=== PATIENT | female | born 1955 | race Caucasian/White ===

== ENCOUNTER 2020-04-25 13:00 | Outpatient (CLI) | payer OTHER, SELFPAY ==
[2020-04-26 02:52] LABS: SARS-CoV-2 RNA PCR Negative
== END 2020-04-25 13:01 | disposition home or self-care (01) ==
LOC: CHSLAB 13:02
PROVIDERS: PCP Internal Medicine; Visit Provider Internal Medicine
DX: Z20.828 Contact with and (suspected) exposure to other viral communicable diseases (principal)
CPT/HCPCS: 87635; C9803; U0003

== ENCOUNTER 2020-04-29 15:42 | Emergency (ER) | payer OTHER, SELFPAY ==
--- NOTE | ~2020-04-29 | XR_ITS ---
EXAMINATION: XR chest 2V 04/29/2020 16:38 INDICATION: Cough and congestion. PROCEDURE: PA and lateral views of chest COMPARISON: Comparison to multiple prior studies sequentially, with oldest reviewed study dated 08/07. FINDINGS: The lungs are clear. The cardiomediastinal silhouette is within normal limits. There are no pleural effusions. There is no pneumothorax suspected. IMPRESSION: 1: NO ACUTE CARDIOPULMONARY DISEASE. Reviewed, dictated and finalized at location A.
[2020-04-29 16:00] VITALS: BP 126/70; PULSE 105; RESP 14; TEMP 37.4; O2SAT 94
--- NOTE | 2020-04-29 16:10 | ED.URI ---
HPI - URI/Sore Throat General Chief Complaint: Upper Respiratory Infection Stated Complaint: sore throat, cough, congestion,weakness,hot/cold Time Seen by Provider: 04/29/20 16:18 History of Present Illness HPI Narrative: 64-year-old female patient is here with chief complaints of productive cough and wheezing for the last 3-4 weeks. The patient states that she has a known history of COPD /emphysema and has been a smoker up until 12 days ago. She states that she used to smoke a pack of cigarettes and has gone down to almost nothing for the last 12 days. She was evaluated by her primary care physician and treated for bronchitis with Z-Jax that she finished yesterday. The patient states that she still has cough and wheezing and is bringing up yellow thick sputum. She denies any blood in the sputum. She denies any fever or chills. Patient states that she coughs to the point of at times. She also states that she has frequent diarrhea episodes. She denies any abdominal pain. She denies any sore throat or runny nose. She had apparently been tested for COVID-19 recently within the last 2 days and was found to be negative. She does not recall any known contact with any sick person. The patient states that she does not get exposed to secondhand smoke since she lives alone. She is currently using an inhaler and has been using it rather frequently. She denies having ever used an albuterol nebulizer treatment at home. Related Data Home Medications Medication Instructions Recorded Confirmed albuterol sulfate [ProAir HFA] 2 puff INHALATION Q4-5H PRN 04/29/20 04/29/20 atorvastatin 10 mg PO DAILY 04/29/20 04/29/20 bupropion HCl 150 mg PO BID 04/29/20 04/29/20 famotidine 20 mg PO BID 04/29/20 04/29/20 fluoxetine 20 mg PO DAILY 04/29/20 04/29/20 Allergies Allergy/AdvReac Type Severity Reaction Status Date / Time No Known Allergies Allergy Verified 04/29/20 16:10 Review of Systems Review of Systems: All systems reviewed & are unremarkable except as noted in HPI and below Constitutional: Constitutional: Reports no additional constitutional complaints, Denies chills, Reports fatigue, Denies fever(s) and Denies weakness ENT: Reports system reviewed and no additional complaints, except as documented and Reports as per HPI Cardiovascular: Cardiovascular: Denies chest pain, Denies rapid heart rate, Denies radiating jaw, neck or arm pain and Denies slow heart rate Respiratory: Respiratory: Reports no additional respiratory complaints, Reports chest congestion, Reports cough, Reports dyspnea and Reports wheezing Gastrointestinal: Gastrointestinal: Denies abdominal pain, Denies constipation, Denies heartburn, Reports diarrhea, Denies nausea and Reports vomiting Genitourinary: Genitourinary: Reports no additional female genitourinary complaints Integumentary/Breasts: Skin/Breast: Reports system reviewed and no additional complaints, except as docu Neurologic: Reports system reviewed and no additional complaints, except as documented Psychiatric: Psychiatric: Reports no additional psychiatric complaints Endocrine: Endocrine: Reports no additional endocrine complaints Hematologic/Lymphatic: Hematologic/Lymphatic: Reports no additional hematologic/lymphatic complaints [facility] Past Medical History Medical History (Updated 04/29/20 @ 17:10 by Emily Dumas MD) Acute adjustment disorder with mixed anxiety and depressed mood Borderline hypercholesterolemia COPD (chronic obstructive pulmonary disease) Social History Social History (Updated 04/29/20 @ 16:52 by Emily Dumas MD) Smoking packs per day: 1 Smoking cigarettes per day: 20.0 Years smoked: 10 Smoking pack-years: 10.00 Smoking status: Current some day smoker Tobacco type: cigarettes Alcohol intake: unknown Substance use: never Living arrangements: alone Gender identity (if verbalized by the patient): Female Exam Const: General: no acute distress and aler
[2020-04-29] MEDS: IPRATROPIUM 0.5 MG/ALBUTEROL SULFATE 2.5 MG AMPUL.NEB 3 ML INHALATION (16:37)
[2020-04-29 16:38] VITALS: RESP 16
[2020-04-29 16:46] VITALS: RESP 16
[2020-04-29 17:25] VITALS: BP 140/71; PULSE 100; RESP 13; O2SAT 94
== END 2020-04-29 17:25 | disposition home or self-care (01) ==
PROVIDERS: Emergency Provider Emergency Medicine; PCP Internal Medicine
DX: J44.1 Chronic obstructive pulmonary disease with (acute) exacerbation (principal)
CPT/HCPCS: 71046; 94640; 99283

== ENCOUNTER 2020-08-26 12:53 | Outpatient (CLI) | payer OTHER, SELFPAY ==
[2020-08-26 13:33] LABS: SARS-CoV-2 Ag Positive (Negative)
== END 2020-08-26 12:54 | disposition home or self-care (01) ==
LOC: CHSLAB 12:55
PROVIDERS: PCP Internal Medicine; Visit Provider Internal Medicine
DX: U07.1 COVID-19 (principal)
CPT/HCPCS: 87426

== ENCOUNTER 2020-09-16 13:54 | Outpatient (CLI) | payer OTHER, SELFPAY ==
--- NOTE | ~2020-09-16 | CT_ITS ---
EXAMINATION: CT lung screening EXAM DATE: 09/16/2020 14:21 INDICATION: Personal history of nicotine dependence. TECHNIQUE: Spiral low dose CT of the chest without contrast. Axial, coronal and sagittal images were reviewed. The dose-length product (DLP) for this examination was 105.94 mGy-cm. The exposure was t ailored according to patient size (auto mA exposure control), and iterative reconstruction (ASIR) was used as additional dose reduction technique. There is no prior study for comparison. FINDINGS: Linear lingular, right middle lobe scarring. Mild emphysema and moderate hyperinflation. Tracheobronchial tree is patent. There is no mediastinal, hilar or axillary lymphadenopathy. Ther e are no pleural or pericardial effusions. There is no pneumothorax. Heart normal in size. No e vidence of coronary arterial calcification. Gastric cardial diverticulum. There is thoracic spondyl osis without osteoblastic or osteolytic lesions identified. IMPRESSION: Lung-RADS category 1, negative (<1%chance of malignancy); recommend continued LDCT screen ing in 1 year. > Reviewed, dictated and finalized at location B. ING/EVENT PLANNER IMPRESSION: Lung-RADS category 1, negative (<1%chance of malignancy); recommend continued LDCT screening in 1 year. >
== END 2020-09-16 13:55 | disposition home or self-care (01) ==
LOC: CHSIMG 13:56
PROVIDERS: PCP Internal Medicine; Visit Provider Internal Medicine
DX: Z12.2 Encounter for screening for malignant neoplasm of respiratory organs (principal); Z87.891 Personal history of nicotine dependence
CPT/HCPCS: 71271

== ENCOUNTER 2021-05-16 14:04 | Outpatient (CLI) | payer OTHER, SELFPAY ==
--- NOTE | ~2021-05-16 | XR_ITS ---
XR_[id number]_CR 05/16/2021 14:44 Indication: General neck pain. Muscle tightness. Procedure: 3 views of the cervical spine Comparison: No prior studies for comparison. Findings: There is degenerative disc disease at C5-6 and C6-7. There are mild uncinate degenerative c hanges at multiple levels. No fracture or traumatic malalignment. No prevertebral soft tissue swellin g. There is carotid atherosclerosis on the right. No prevertebral soft tissue swelling. Odontoid proc ess within normal limits. Lateral masses normally aligned. Impression: 1: Mild-moderate cervical spondylosis. Reviewed, dictated and finalized at location A. Impression: 1: Mild-moderate cervical spondylosis.
== END 2021-05-16 14:05 | disposition home or self-care (01) ==
LOC: CHSIMG 14:08
PROVIDERS: PCP Internal Medicine; Visit Provider Internal Medicine
DX: M54.2 Cervicalgia (principal)
CPT/HCPCS: 72040

== ENCOUNTER 2021-05-21 14:45 | Outpatient (CLI) | payer OTHER, SELFPAY ==
--- NOTE | ~2021-05-21 | US_ITS ---
EXAMINATION: US carotid duplex BI DATE: 05/21/2021 15:13 INDICATION: Carotid stenosis TECHNIQUE: Grayscale, color Doppler, and pulsed Doppler images of the cervical carotid arteries were obtained. The degree of vessel stenosis is placed in one of the following categories: normal, <50%, 5 0-69%, >=70% but less than near-occlusion, near-occlusion, or total occlusion. Note that percent sten osis relative to normal distal artery lumen diameter is indirectly measured from velocity measurement s as described by Vijay, et al. Radiology 2003; 229:340-346. Notes: Normal: Peak systolic velocity <125 centimeters/sec and no plaque <50%. Peak systolic velocity <125 ( EDV <40; ICA/CCA PSV ratio <2.0; used these factors only a tandem lesions or low cardiac output or co ntralateral disease) 50-69 %: PSV 125-230 (EDV 40-100; ratio 2-4) >= 70% but less than near occlusion: PSV greater than 230 (EDV > 100; ratio> 4.0) Near Occlusion: PSV that is variable; markedly narrowed lumen Occlusion: Absent flow on color/spectral Doppler and no lumen on brand scale. COMPARISON: None. FINDINGS: RIGHT: The right common carotid artery (CCA) peak systolic velocity (PSV) is 79 cm/s. The right internal car otid artery (ICA) PSV is 66 cm/s. The right ICA end-diastolic velocity (EDV) is 20 cm/s. The right IC A/CCA PSV ratio is 0.8. The external carotid artery (ECA) PSV is 160 cm/s. There is antegrade flow in the right vertebral artery. LEFT: The left CCA PSV is 84 cm/s. The left ICA PSV is 80 cm/s. The left ICA EDV is 25 cm/s. The left ICA/C CA PSV ratio is 1.0. The ECA PSV is 98 cm/s. There is antegrade flow in the left vertebral artery. IMPRESSION: 1. Less than 50% stenosis in the right internal carotid artery by sonographic criteria. 2. Less than 50% stenosis in the left internal carotid artery by sonographic criteria. Reviewed, dictated and finalized at location A. IMPRESSION: 1. Less than 50% stenosis in the right internal carotid artery by sonographic wanda lang. 2. Less than 50% stenosis in the left internal carotid artery by sonographic earline jerez.
== END 2021-05-21 14:46 | disposition home or self-care (01) ==
LOC: CHSIMG 14:46
PROVIDERS: PCP Internal Medicine; Visit Provider Internal Medicine
DX: I65.29 Occlusion and stenosis of unspecified carotid artery (principal); I70.90 Unspecified atherosclerosis
CPT/HCPCS: 93880

== ENCOUNTER 2021-05-26 13:04 | Outpatient (RCR) | payer OTHER, SELFPAY ==
--- NOTE | 2021-05-26 14:07 | PTOPEVAL ---
Thank you for referring Maye Pitt to [facility].? The patient is scheduled to be seen for therapy? ____x/week for ___ weeks. Please review, sign, date and return this plan of care ANDI. I agree with and certify that the following plan of care is medically necessary. Referring Physician Date Admitting Provider: Attending Provider: George Torres MD Referring Provider: *PT Outpatient Evaluation Start: 05/26/21 13:08 Freq: Status: Active Protocol: Document 05/26/21 13:08 ACR (Rec: 05/26/21 14:07 ACR [id number]) Therapy Assessment Status Assessment Status Assessment Status Evaluation Outpatient Past Medical History Cardiovascular History Hx Hypercholesterolemia Yes Respiratory History Hx Asthma Yes Hx Chronic Obstructive Pulmonary Disease Yes (COPD) Gastrointestinal History Hx Appendectomy Yes Hx Gastroesophageal Reflux Disease Yes Musculoskeletal History Hx Arthritis Yes HEENT History Hx Tonsillectomy Yes Psychosocial History Hx Depression Yes Evaluation Information Problem Diagnosis neck pain Onset 05/19/21 Subjective Information Patient states that her neck Query Text:As Reported By Patient/ has become pretty stiff over Family the last few weeks. Patient states that she has difficulty with turning her head side to side, looking up, and reaching overhead. She states that she has tightness going all the way through her shoulders. Patient reports radicular symptoms down the L arm into all fingers. Patient states that she is taking muscle relaxers and a pain killer at night in order to sleep better. Patient states her goal for therapy is to decrease the stiffness. Prior Level of Function Activity Level (Last 3 Months) Occupation unemployed Hand Dominance Right Activity of Daily Living Ability Independent Indoor/Home Mobility Independent Community Mobility Independent Stairs Ability Independent Functional Cognition (Planning, Shopping Independent , Taking Medications) Cooking Yes Cleaning Yes Laundry Yes Shopping Yes Driv
--- NOTE | 2021-07-09 07:25 | PCPTNOTE ---
07/09/21 - patient has not been to therapy in over a month. as of this date, she will be dc'd from skilled PT services and all progress towards goals will be taken from her most recent evaluation/note. KEMAR
== END 2021-06-05 09:33 | disposition home or self-care (01) ==
LOC: CHSPT 13:04
PROVIDERS: PCP Internal Medicine; Visit Provider Internal Medicine
DX: M47.812 Spondylosis without myelopathy or radiculopathy, cervical region (principal)
CPT/HCPCS: 97014; 97110; 97161; G0283

== ENCOUNTER 2021-12-29 16:15 | Outpatient (CLI) | payer MEDICARE, MEDICAID, SELFPAY ==
--- NOTE | ~2021-12-29 | XR_ITS ---
XR chest 2V DATE: 12/29/2021 16:54 INDICATION: Chronic cough. Fatigue. Smoker. TECHNIQUE: PA and lateral views COMPARISON: 09/16/2020 CT lung screening FINDINGS: Normal heart size. No hilar or mediastinal enlargement. There is mild bilateral hyperinflation. No pulmonary infiltrate or consolidation, pleural effusion or pulmonary vascular congestion or pneumothorax. IMPRESSION: Mild bilateral hyperinflation; no active cardiopulmonary disease Reviewed, dictated and finalized at location A.
[2021-12-29 16:37] LABS: Add Urine Microscopic? YES; Appearance Urine Clear (Clear); Basophils Absolute Auto 0.03 K/mm3 (0.00-0.10); Basophils Percent Auto 0.4 % (0.0-1.0); Bilirubin Urine Negative (Negative); Blood Urine 1+ (Negative); Color Urine Yellow (Yellow); Eosinophils Absolute Auto 0.22 K/mm3 (0.02-0.50); Eosinophils Percent Auto 2.8 % (1.0-6.0); Glucose Urine UA Negative (Negative); Hematocrit 44.4 % (35.0-42.0); Hemoglobin 14.1 g/dL (11.7-13.8); Immature Granulocyte Absolute 0.03 K/mm3 (0.00-0.00); Immature Granulocyte Percent A 0.4 % (0.0-0.0); Ketones Urine Negative (Negative); Leukocyte Esterase Ur Negative (Negative); Lymphocytes Absolute Auto 1.76 K/mm3 (1.10-4.50); Mean Corpuscular HGB Conc 31.8 g/dL (32.0-36.0); Mean Corpuscular Hemoglobin 29.6 pg (27.0-31.0); Mean Corpuscular Volume 93.1 fL (78.0-102.0); Mean Platelet Volume 10.7 fl (9.2-11.8); Monocytes Absolute Auto 0.62 K/mm3 (0.10-0.90); Monocytes Percent Auto 7.8 % (2.0-11.0); Neutrophils Absolute Auto 5.3 K/mm3 (1.7-7.2); Neutrophils Percent Auto 66.6 % (50.0-70.0); Nitrate Urine Negative (Negative); Platelet Count Result 250 K/mm3 (150-420); Protein Urine Negative (Negative); Red Blood Count 4.77 M/mm3 (4.20-5.40); Red Cell Distribution Width 13.6 % (11.6-14.4); Specific Grav Ur >= 1.030 (1.010-1.020); Urobilinogen Urine 0.2 mg/dL (0.2-1.0); pH Urine 5.5 (5.0-8.0)
[2021-12-29 16:42] LABS: Squamous Epithelial Cell Urine Few /hpf (Few); WBC Urine None seen /hpf (0-3)
[2021-12-29 16:44] LABS: Bacteria Urine Trace /hpf; Mucus Urine Few /lpf
[2021-12-29 17:03] LABS: Alanine Aminotransferase 21 U/L (14-59); Albumin Level 3.9 g/dL (3.4-5.0); Alkaline Phosphatase 69 U/L (46-116); Anion Gap 6 mmol/L (8-16); Aspartate Amino Transferase 25 U/L (15-37); Bilirubin,Total 0.3 mg/dL (0.00-1.00); Blood Urea Nitrogen 14 mg/dL (7-18); Carbon Dioxide 30 mmol/L (21-32); Chloride 103 mmol/L (98-108); Cholesterol 238 mg/dL (0-200); Estimated Glomerular Filt Rate 59; Glucose 93 mg/dL (70-99); HDL Direct 73 mg/dL (40-60); LDL Cholesterol Calculated 138 mg/dL (<130); Osmolality Calculated 288 mOsm/kg (285-295); Potassium 4.4 mmol/L (3.5-5.1); Sodium 139 mmol/L (136-145); Thyroid Stimulating Hormone 13.22 uIU/mL (0.36-3.74); Total Protein 7.6 g/dL (6.4-8.2); Triglycerides 134 mg/dL (0-150)
== END 2021-12-29 16:16 | disposition home or self-care (01) ==
LOC: CHSLAB 16:20
PROVIDERS: PCP Internal Medicine; Visit Provider Internal Medicine
DX: R53.83 Other fatigue (principal); R05.3 Chronic cough; E78.5 Hyperlipidemia, unspecified
CPT/HCPCS: 36415; 71046; 80053; 80061; 81001; 84443; 85025

== ENCOUNTER 2022-01-02 13:53 | Outpatient (CLI) | payer MEDICARE, MEDICAID, SELFPAY ==
--- NOTE | ~2022-01-02 | CT_ITS ---
EXAMINATION: CT abdomen pelvis wo/w con DATE: 01/02/2022 14:43 INDICATION: Hematuria TECHNIQUE: Computed tomography (CT) of the abdomen and pelvis was performed without and subsequently with 130 CC Omnipaque 350 intravenous contrast. Automated exposure control and iterative reconstructi on technique were employed. Exam dose: 810.01 mGy-cm total exam DLP. COMPARISON: None. FINDINGS: The lung bases are clear. Normal heart size. No pericardial or pleural effusion. Small sliding hiatal hernia. No hepatic, splenic, pancreatic, adrenal or renal space-occupying mass lesion. No urinary tract calculus or hydroureteronephrosis. The urinary bladder is unremarkable. Status post appendectomy. Multiple diverticula of left and right colon; no evidence of diverticulitis . No bowel obstruction, bowel wall thickening, pneumatosis or intraperitoneal free air. The uterus, adnexal areas are unremarkable. There is atherosclerotic calcification but normal caliber of the abdominal aorta and iliac arteries. No intraperitoneal or retroperitoneal or pelvic mass lesion or adenopathy or ascites. Moderately severe degenerative disc disease and mild retrolisthesis at L1-2. No suspicious osteolytic or osteoblastic lesions. IMPRESSION: No cause for hematuria is identified Diverticulosis of the colon; no evidence of diverticulitis Status post appendectomy Small sliding hiatal hernia No cause for hematuria is identified Reviewed, dictated and finalized at Location A. Reviewed, dictated and finalized at location A.
== END 2022-01-02 13:54 | disposition home or self-care (01) ==
LOC: CHSIMG 13:53
PROVIDERS: PCP Internal Medicine; Visit Provider Internal Medicine
DX: R31.9 Hematuria, unspecified (principal)
CPT/HCPCS: 74178; Q9967

== ENCOUNTER 2022-01-23 14:56 | Outpatient (CLI) | payer MEDICARE, SELFPAY ==
--- NOTE | ~2022-01-23 | CT_ITS ---
EXAMINATION: CT lung screening DATE: 01/23/2022 15:20 INDICATION: Personal history of tobacco dependence TECHNIQUE: Computed tomography (CT) of the chest was performed without intravenous contrast. The dose -length product was 92.67 mGy-cm. Automated exposure control and iterative reconstruction technique w ere employed. COMPARISON: CT dated 09/16/2020 FINDINGS: Heart size normal. No significant pleural or pericardial effusion. No thoracic lymphadenopa thy. No significant vascular abnormality. The upper abdomen is unremarkable. No focal airspace diseas e. No pneumothorax. There is lingular and right middle lobe atelectasis/scarring. No acute osseous ab normality. IMPRESSION: 1. Lung-RADS category 1: Negative. Continue annual screening with noncontrast low-dose chest CT in 12 months. Reviewed, dictated and finalized at location B. IMPRESSION: 1. Lung-RADS category 1: Negative. Continue annual screening with noncontrast l ow-dose chest CT in 12 months.
== END 2022-01-23 14:57 | disposition home or self-care (01) ==
LOC: CHSIMG 14:58
PROVIDERS: PCP Internal Medicine; Visit Provider Internal Medicine
DX: Z12.2 Encounter for screening for malignant neoplasm of respiratory organs (principal); Z87.891 Personal history of nicotine dependence
CPT/HCPCS: 71271

== ENCOUNTER 2022-01-29 15:12 | Outpatient (CLI) | payer MEDICARE, MEDICAID, SELFPAY ==
--- NOTE | 2022-01-29 15:25 | ECG_ITS ---
Measurements Intervals [place] Rate: 82 P: 74 [place]: 188 QRS: 51 QRSD: 84 T: 48 QT: 383 QTc: 448 Interpretive Statements SINUS RHYTHM RSR' IN V1 OR V2, PROBABLY NORMAL VARIANT MISSLING LEAD V4 BORDERLINE ECG Electronically Signed On 01-29-2022 16:16:08 CDT by Sharif Chaves D.O.
== END 2022-01-29 15:13 | disposition home or self-care (01) ==
LOC: CHSIMG 15:15
PROVIDERS: PCP Internal Medicine; Visit Provider Internal Medicine Cardiovascular Disease
DX: R06.00 Dyspnea, unspecified (principal)
CPT/HCPCS: 93005

== ENCOUNTER 2022-02-13 12:45 | Outpatient (CLI) | payer MEDICARE, MEDICAID, SELFPAY ==
--- NOTE | 2022-02-13 12:47 | ECHO_ITS ---
Patient Info Name: Maye Pitt Age: 66 years : 1955 Gender: Female Ht: 65 in Wt: 159 lbs BSA: 1.83 m2 HR: 65 bpm BP: 133 / 98 mmHg Heart Rhythm: Sinus Rhythm Technical Quality: Fair Exam Date: 02/13/2022 12:37 PM Exam Location: [facility] Patient Status: Outpatient Admit Date: 02/13/2022 Staff Ordering Physician: Sharif Chaves DO Ruching Machine Operator: Amparo Justin RDCS Attending Provider: George Torres MD Referring Physician: Anastacio WORTHY; Exam Type: CA echo doppler color flow Study Info Indications - dyspnea Complete two-dimensional, color flow and Doppler transthoracic echocardiogram is performed. Summary 1. Complete two-dimensional, color flow and Doppler transthoracic echocardiogram is performed. 2. Left ventricular chamber dimension is normal. 3. Left ventricular systolic function is normal, estimated at 60-65%. 4. The left ventricular diastolic function is grade I diastolic dysfunction. 5. E/e' 8 is minimally elevated. 6. 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 7. There is mild aortic valve sclerosis. 8. There is mild mitral valve regurgitation. 9. There is trace tricuspid valve regurgitation. 10. No pulmonary hypertension, estimated pulmonary arterial systolic pressure is 33 mmHg. 11. There is trace pulmonic regurgitation. Left Ventricle E/e' 8 is minimally elevated. Left ventricular chamber dimension is normal. Left ventricular systolic function is normal, estimated at 60-65%. The left ventricular diastolic function is grade I diastolic dysfunction. Right Ventricle Right ventricular chamber dimension is normal. Right ventricular systolic function is normal. Left Atria Left atrial chamber dimension is normal. Right Atria Right atrial chamber dimension is normal. Atrial Septum Interatrial septal aneurysm with no obvious evidence of shunting by color doppler. Aortic Valve The aortic valve is trileaflet. There is mild aortic valve sclerosis. There is no aortic valve stenosis. There is trace aortic valve regurgitation. Pulmonic Valve There is trace pulmonic regurgitation. Mitral Valve There is no mitral valve stenosis. There is mild mitral valve regurgitation. Tricuspid Valve There is trace tricuspid valve regurgitation. No pulmonary hypertension, estimated pulmonary arterial systolic pressure is 33 mmHg. Pericardium/Pleural There is no pericardial effusion. Inferior Vena Cava Normal inferior vena cava with >50% collapse upon inspiration consistent with normal right atrial pressure, 5 mmHg. Aorta The aortic root size at the sinus of Valsalva is normal. Left Ventricular Outflow Tract Name Value Normal LVOT 2D LVOT Diameter 2.0 cm LVOT Doppler LVOT Peak Velocity 101 cm/s LVOT Peak Gradient 4 mmHg LVOT Mean Gradient 2 mmHg LVOT VTI 19 cm LVOT VTI/AV VTI Ratio 0.6 LVOT Stroke Volume 58 ml Pulmonic Valve
== END 2022-02-13 12:46 | disposition home or self-care (01) ==
PROVIDERS: PCP Internal Medicine; Visit Provider Internal Medicine
DX: J44.9 Chronic obstructive pulmonary disease, unspecified (principal); R06.00 Dyspnea, unspecified; R00.2 Palpitations
CPT/HCPCS: 93306; 94060; 94726; 94729

== ENCOUNTER 2022-05-26 08:00 | Outpatient (NON) | payer MEDICARE, MEDICAID, SELFPAY | END 2022-05-26 08:01 | disposition home or self-care (01) | LOC: ANHLAB 05-27 07:16 | PROVIDERS: PCP Internal Medicine; Visit Provider Internal Medicine Gastroenterology | DX: K21.9 Gastro-esophageal reflux disease without esophagitis (principal) | CPT/HCPCS: 88305 ==

== ENCOUNTER 2022-05-26 10:18 | Day surgery (SDC) | payer MEDICARE, MEDICAID, SELFPAY ==
[2022-03-24 12:13] VITALS: BMI 26.0
[2022-05-08 12:07] VITALS: BMI 26.4
[2022-05-26] MEDS: LACTATED RINGERS 1,000 ML 150 ML IV CONT (10:40)
[2022-05-26 10:55] VITALS: BP 132/99; PULSE 94; RESP 16; TEMP 37.4; O2SAT 98
--- NOTE | 2022-05-26 11:50 | P.PNAN_ITS ---
Anes - Initial Pre Proc Eval Procedure: Operation Date: 05/26/22 12:00 Proposed Procedures p Esophagogastroduodenoscopy - Cm Cantu MD s Screening Colonoscopy - Cm Cantu MD Date/Time: 05/26/22 11:50 Surgeon: Cm Cantu MD Pre Op Diagnosis: DYSPHAGIA, NEOPLASM SCREENING Patient Data Age: 66 Gender: F Height: 1.65 m Weight: 69.6 kg Allergies Allergy/AdvReac Type Severity Reaction Status Date / Time No Known Allergies Allergy Verified 05/26/22 10:47 Home Medications Medication Instructions Recorded Confirmed Type albuterol sulfate 2.5 mg/3 mL 2.5 mg (3 mL) inhalation Q6H #90 mL 04/29/20 05/26/22 Rx (0.083 %) solution for nebulization albuterol sulfate 90 mcg/actuation 2 puff inhalation Q4-5H PRN 04/29/20 05/26/22 History aerosol inhaler (ProAir HFA) Shortness Of Breath atorvastatin 10 mg tablet 10 mg PO DAILY 04/29/20 05/26/22 History bupropion HCl 150 mg tablet,12 hr 150 mg PO BID 04/29/20 05/26/22 History sustained-release famotidine 20 mg tablet 20 mg PO BID 04/29/20 05/26/22 History fluoxetine 20 mg capsule 20 mg PO DAILY 04/29/20 05/26/22 History carisoprodol 350 mg tablet (Soma) 350 mg PO TID 01/29/22 05/26/22 History levothyroxine 50 mcg capsule 50 mcg PO DAILY 01/29/22 05/26/22 History Patient hx anesthesia problems: none Family hx anesthesia problems: none Results Review: All pre-operative results and documents have been reviewed as part of the pre- operative evaluation. [facility] Past Medical History Medical History (Updated 05/26/22 @ 11:54 by Garrick Mejia MD) Acute adjustment disorder with mixed anxiety and depressed mood Borderline hypercholesterolemia Colon cancer screening COPD (chronic obstructive pulmonary disease) GERD (gastroesophageal reflux disease) Normal esophagogastroduodenoscopy (EGD) Surgical History Surgical History (Updated 05/26/22 @ 11:54 by Garrick Mejia MD) H/O arthroscopic knee surgery H/O colonoscopy H/O hernia repair Social History Social History Smoking packs per day: 1 Smoking cigarettes per day: 20.0 Years smoked: 15 Smoking pack-years: 15.00 Smoking status: Former smoker Tobacco type: cigarettes Alcohol intake: current Substance use: unknown Substance use type: does not use Living arrangements: alone Gender identity (if verbalized by the patient): Female Spiritual care concerns: No Anes - Eval Final PreProcedure Day of Procedure 05/26/22 11:50 Patient weight: normal Heart: regular rate and rhythm Lungs: clear to auscultation Airway: Mallampati scale class II Last oral intake: >/= 8 hours ASA classification: III Emergent: no Anesthetic plan: proceed Results Review: All pre-operative results and documents have been reviewed as part of the pre- operative evaluation. Informed Consent: The patient's anesthetic plan and its attendant risks and benefits were discussed with the patient/family/POA. Questions were solicited and answers provided to the satisfaction of the patient/family/POA.
--- NOTE | 2022-05-26 12:02 | PM.HPGS ---
History of Present Illness History of Present Illness Consent: Risks, benefits, and alternatives have been discussed and questions answered. Patient agrees to proceed with procedure. Chief complaint: DYSPHAGIA, NEOPLASM SCREENING Narrative: Maye Pitt is a 66 year old female here for egd and colonoscopy, recent visit to office with dysphagia to solids for several years, she thinks that about 6 years ago esophagus stretched out with balloon but did not help. She will have to chew small pieces, sometimes will have to drink water to bring solid food down. Also h/o GERD using famotidine. She had colonoscopy but over 20 years ago. Review of Systems Constitutional: Constitutional: Denies headache(s) and Denies weakness Eyes: Eyes: Denies blurry vision ENT: Reports Normal hearing present, Denies headache(s) and Denies neck pain Cardiovascular: Cardiovascular: Denies chest pain and Denies dyspnea Respiratory: Respiratory: Denies dyspnea Gastrointestinal: Gastrointestinal: Reports no additional gastrointestinal complaints Genitourinary: Genitourinary: Denies dysuria Musculoskeletal: Musculoskeletal: Denies neck pain Integumentary/Breasts: Skin/Breast: Denies dry skin Neurologic: Reports Normal hearing present, Denies headache(s) and Denies weakness Psychiatric: Psychiatric: Denies anxiety Endocrine: Endocrine: Denies change in body appearance Hematologic/Lymphatic: Hematologic/Lymphatic: Denies easy bleeding Allergic/Immunologic: Allergic/Immunologic: Denies urticaria PMFSH Past Medical History Medical History (Updated 05/26/22 @ 12:03 by Cm Cantu MD) Acute adjustment disorder with mixed anxiety and depressed mood Borderline hypercholesterolemia Colon cancer screening COPD (chronic obstructive pulmonary disease) Dysphagia GERD (gastroesophageal reflux disease) Normal esophagogastroduodenoscopy (EGD) Surgical History Surgical History (Updated 05/26/22 @ 11:54 by Garrick Mejia MD) H/O arthroscopic knee surgery H/O colonoscopy H/O hernia repair Social History Social History Smoking packs per day: 1 Smoking cigarettes per day: 20.0 Years smoked: 15 Smoking pack-years: 15.00 Smoking status: Former smoker Tobacco type: cigarettes Alcohol intake: current Substance use: unknown Substance use type: does not use Living arrangements: alone Gender identity (if verbalized by the patient): Female Spiritual care concerns: No Meds Home Medications and Allergies Home Medications Medication Instructions Recorded Confirmed Type albuterol sulfate 2.5 mg/3 mL 2.5 mg (3 mL) inhalation Q6H #90 mL 04/29/20 05/26/22 Rx (0.083 %) solution for nebulization albuterol sulfate 90 mcg/actuation 2 puff inhalation Q4-5H PRN 04/29/20 05/26/22 History aerosol inhaler (ProAir HFA) Shortness Of Breath atorvastatin 10 mg tablet 10 mg PO DAILY 04/29/20 05/26/22 History bupropion HCl 150 mg tablet,12 hr 150 mg PO BID 04/29/20 05/26/22 History sustained-release famotidine 20 mg tablet 20 mg PO BID 04/29/20 05/26/22 History fluoxetine 20 mg capsule 20 mg PO DAILY 04/29/20 05/26/22 History carisoprodol 350 mg tablet (Soma) 350 mg PO TID 01/29/22 05/26/22 History levothyroxine 50 mcg capsule 50 mcg PO DAILY 01/29/22 05/26/22 History Allergies Allergy/AdvReac Type Severity Reaction Status Date / Time No Known Allergies Allergy Verified 05/26/22 10:47 Vital Signs Vital Signs - 24 hr 05/26/22 10:55 Temperature 99.4 F Pulse Rate 94 Respiratory Rate 16 Blood Pressure 132/99 H Pulse Oximetry 98 Oxygen Delivery Room Air Exam Const: General: comfortable and no acute distress HENMT: General nose exam: Normal nares present Eyes: General: appearance normal, both eyes and all related structures Neck: Neck: no JVD Resp: Auscultation: clear to auscultation bilaterally Cardio: Rate: regular rate
--- NOTE | 2022-05-26 12:13 | SUR.OPER ---
ESOPHAGEAL BALLOON INFLATED TO 18
[2022-05-26 12:32] VITALS: BP 117/81; PULSE 87; RESP 16; O2SAT 96
[2022-05-26 12:42] VITALS: BP 121/79; PULSE 82; RESP 16; O2SAT 98
[2022-05-26 12:52] VITALS: BP 152/86; PULSE 66; RESP 16; O2SAT 99
--- NOTE | 2022-05-26 12:54 | WPDANESPN ---
Anes - Prog Note Post-Op Date/Time: 05/26/22 12:54 Cardiovascular status: normal Respiratory status: normal Airway patency: baseline Mental status: baseline Post-Op hydration status: normal Vital Signs: Last Vital Signs Temp 37.4 C 05/26/22 10:55 Pulse 82 05/26/22 12:42 Resp 16 05/26/22 12:42 BP 121/79 05/26/22 12:42 Pulse Ox 98 05/26/22 12:42 O2 Del Method Room Air 05/26/22 12:42 Pain Score (VAS): o/10 I/O: Intake & Output 05/25/22 05/26/22 05/26/22 23:59 07:59 15:59 Intake Total 600 Balance 600 Patient Feedback: Patient satisfied with anesthetic care.
== END 2022-05-26 13:35 | disposition home or self-care (01) ==
PROVIDERS: PCP Internal Medicine; Visit Provider Internal Medicine Gastroenterology
PROC: 0DJ08ZZ Inspection of Upper Intestinal Tract, Via Natural or Artificial Opening Endoscopic (ICD-10-PCS; CPT 43235; principal; 2022-05-26 12:00)
PROC: 0DJD8ZZ Inspection of Lower Intestinal Tract, Via Natural or Artificial Opening Endoscopic (ICD-10-PCS; CPT 45378; 2022-05-26 12:00)
DX: Z12.11 Encounter for screening for malignant neoplasm of colon (principal); K21.9 Gastro-esophageal reflux disease without esophagitis
CPT/HCPCS: 45378; 43249; 43239

== ENCOUNTER 2022-11-10 06:40 | Emergency (ER) | payer MEDICARE, MEDICAID, SELFPAY ==
[2022-11-10] VITALS (8 sets, daily range): BP systolic 133–154; BP diastolic 71–87; PULSE 88–94; RESP 18–20; TEMP 36.3; O2SAT 95–98
--- NOTE | ~2022-11-10 | CT_ITS ---
EXAMINATION: CT abdomen pelvis w con DATE: 11/10/2022 08:32 INDICATION: Vomiting. Diarrhea. TECHNIQUE: Computed tomography (CT) of the abdomen and pelvis was performed with 100 mL Omnipaque 350 intravenous contrast. Automated exposure control and iterative reconstruction technique were employe d. The dose-length product was 459.61 mGy-cm. COMPARISON: CT abdomen and pelvis 01/02/2022 FINDINGS: The visualized portions of the lung bases demonstrate mild atelectasis. No pleural effusion . The heart size is normal. No pericardial effusion. There is a small sliding hiatal hernia. The live r, gallbladder, spleen, pancreas, adrenal glands, and kidneys are normal. There is diverticulosis of the colon without evidence of diverticulitis. There are changes of appendectomy. There is a posterior diverticulum of the gastric fundus. There are no pathologically enlarged lymph nodes. There is no fr ee intraperitoneal fluid. There is moderate lumbar spondylosis. IMPRESSION: 1. Small sliding hiatal hernia. Reviewed, dictated and finalized at location A. SPECIALIST
--- NOTE | 2022-11-10 07:09 | PC.NURSE ---
Pt resting, call an in reach, new orders received, report given to VINICIUS Bowie
--- NOTE | 2022-11-10 07:13 | ED.ABDPAIN ---
HPI - Abdominal Pain General Chief Complaint: Abdominal Pain Stated Complaint: abdominal pain Time Seen by Provider: 11/10/22 07:09 History of Present Illness HPI narrative: This is a 67-year-old female with history of GERD, presents emergency department complaining of multiple episodes of vomiting, loose stools and abdominal pain beginning 5 hours ago. She states she woke this morning with significant lower abdominal pain described as cramping and dull, initially rated 7/10 but is now improving. She notes seeing small amounts of blood in her stool that has since stopped but denies blood in vomit. She denies any recent sick contacts, cough or dysuria. She states she was given sublingual Zofran by EMS in route to this facility and now feels that her nausea is improved. Related Data Home Medications Medication Instructions Recorded Confirmed albuterol sulfate 90 mcg/actuation 2 puff inhalation Q4-5H PRN 04/29/20 11/10/22 aerosol inhaler (ProAir HFA) Shortness Of Breath atorvastatin 10 mg tablet 10 mg PO DAILY 04/29/20 11/10/22 bupropion HCl 150 mg tablet,12 hr 150 mg PO BID 04/29/20 11/10/22 sustained-release famotidine 20 mg tablet 20 mg PO DAILY 04/29/20 11/10/22 fluoxetine 40 mg capsule 40 mg PO DAILY 11/10/22 11/10/22 levothyroxine 75 mcg tablet 75 mcg PO DAILY 11/10/22 11/10/22 omeprazole 40 mg capsule,delayed 20 mg PO DAILY 11/10/22 11/10/22 release Allergies Allergy/AdvReac Type Severity Reaction Status Date / Time No Known Allergies Allergy Verified 09/28/22 14:32 Review of Systems Review of Systems: CONSTITUTIONAL: Chills denies fever, or sweats. EYES: Denies visual changes, redness, or discharge. ENT: Denies rhinorrhea, congestion, sore throat, or otalgia. CARDIOVASCULAR: Denies chest pain, palpitations, or edema. RESPIRATORY: Denies cough or dyspnea. GASTROINTESTINAL: abdominal pain, nausea, vomiting, and diarrhea. GENITOURINARY: Denies dysuria or hematuria. SKIN: Denies rash or itching. MUSCULOSKELETAL: Denies back pain, joint pain, or myalgia. NEUROLOGIC: Denies headache, numbness, dizziness, or weakness. PSYCHIATRIC: Denies anxiety or depression. PMFSH Past Medical History Medical History Acute adjustment disorder with mixed anxiety and depressed mood Borderline hypercholesterolemia Colon cancer screening COPD (chronic obstructive pulmonary disease) Dysphagia GERD (gastroesophageal reflux disease) Normal esophagogastroduodenoscopy (EGD) Surgical History Surgical History H/O arthroscopic knee surgery H/O colonoscopy H/O hernia repair Social History Social History Smoking packs per day: 1 Smoking cigarettes per day: 20.0 Years smoked: 15 Smoking pack-years: 15.00 Smoking status: Former smoker Tobacco type: cigarettes Alcohol intake: current Substance use: unknown Substance use type: does not use Lack of Transportation: No Lack of Food: Never True Current Housing: I Have Housing Concerned About Future Housing: No Difficulty Paying Gas/Electric Bills: No Difficulty Paying for Meds: No Currently Unemployed: No Education: High School Diploma/GED Difficulty w/ Childcare or Family Care: No Living arrangements: alone Gender identity (if verbalized by the patient): Female Spiritual care concerns: No Exam Narrative: GENERAL: Well-appearing, well-nourished, and in no acute distress. HEAD: Normocephalic, atraumatic. EYES: PERRLA and EOMI. ENT: Nares clear, no rhinorrhea or epistaxis. Mucous membranes moist. Oropharynx without tonsillar hypertrophy exudate or other lesions. CHEST: Clear to auscultation. No respiratory distress. No wheezes rales or rhonchi HEART: Regular rate and rhythm. No murmur heard. Normal peripheral pulses. ABDOMEN: Soft, mild tenderness in the bilateral lower
[2022-11-10 07:30] LABS: Basophils Absolute Auto 0.02 K/mm3 (0.00-0.10); Basophils Percent Auto 0.2 % (0.0-1.0); Eosinophils Absolute Auto 0.06 K/mm3 (0.02-0.50); Eosinophils Percent Auto 0.7 % (1.0-6.0); Hematocrit 36.7 % (35.0-42.0); Hemoglobin 11.5 g/dL (11.7-13.8); Immature Granulocyte Absolute 0.04 K/mm3 (0.00-0.00); Immature Granulocyte Percent A 0.5 % (0.0-0.0); Lymphocytes Absolute Auto 1.01 K/mm3 (1.10-4.50); Lymphocytes Percent Auto 12.5 % (18.0-42.0); Mean Corpuscular HGB Conc 31.3 g/dL (32.0-36.0); Mean Corpuscular Hemoglobin 27.6 pg (27.0-31.0); Mean Platelet Volume 10.9 fl (9.2-11.8); Monocytes Absolute Auto 0.37 K/mm3 (0.10-0.90); Monocytes Percent Auto 4.6 % (2.0-11.0); Neutrophils Absolute Auto 6.6 K/mm3 (1.7-7.2); Neutrophils Percent Auto 81.5 % (50.0-70.0); Platelet Count Result 259 K/mm3 (150-420); Red Blood Count 4.17 M/mm3 (4.20-5.40); Red Cell Distribution Width 14.9 % (11.6-14.4); White Blood Count 8.1 K/mm3 (4.8-10.8)
[2022-11-10] MEDS: FAMOTIDINE 20 MG/2 ML VIAL IV PUSH (07:34)
[2022-11-10] MEDS: DICYCLOMINE HCL INJ 20 MG/2 ML VIAL IM (07:36)
[2022-11-10 07:46] LABS: Alanine Aminotransferase 18 U/L (14-59); Albumin Level 3.9 g/dL (3.4-5.0); Alkaline Phosphatase 66 U/L (46-116); Anion Gap 12 mmol/L (8-16); Aspartate Amino Transferase 24 U/L (15-37); Bilirubin,Total 0.2 mg/dL (0.00-1.00); Blood Urea Nitrogen 12 mg/dL (7-18); Calcium 8.3 mg/dL (8.5-10.1); Carbon Dioxide 25 mmol/L (21-32); Chloride 99 mmol/L (98-108); Estimated Glomerular Filt Rate > 60; Glucose 124 mg/dL (70-99); Lipase 24 U/L (16-77); Osmolality Calculated 282 mOsm/kg (285-295); Potassium 3.6 mmol/L (3.5-5.1); Sodium 136 mmol/L (136-145); Total Protein 7.8 g/dL (6.4-8.2)
[2022-11-10] MEDS: SODIUM CHLORIDE 0.9% IV 2,000 ML 999 ML IV CONT (07:47)
[2022-11-10 08:17] LABS: Appearance Urine Clear (Clear); Bilirubin Urine Negative (Negative); Blood Urine Trace-Intact (Negative); Color Urine Light Yellow (Yellow); Glucose Urine UA Negative (Negative); Ketones Urine 1+ (Negative); Leukocyte Esterase Ur Negative LEU/UL (Negative); Nitrate Urine Negative (Negative); Protein Urine Negative (Negative); Urobilinogen Urine 0.2 mg/dL (0.2-1.0)
[2022-11-10 08:26] LABS: Add Urine Microscopic? YES; Bacteria Urine None seen /hpf; RBC Urine None seen /hpf (0-2); WBC Urine None seen /hpf (0-3)
--- NOTE | 2022-11-10 08:28 | PC.NURSE ---
PT WAS UP TO RR WITHOUT DIFFICULTY, IS IN CT AT THIS TIME. PT IS AWAITING RESULTS. WILL CONTINUE TO MONITOR.
--- NOTE | 2022-11-10 08:52 | PC.NURSE ---
PT RETURNS FROM CT, IS BACK UP TO RR WITHOUT DIFFICULTY. WILL CONTINUE TO MONITOR.
== END 2022-11-10 09:36 | disposition home or self-care (01) ==
PROVIDERS: Emergency Provider Preventive Medicine Aerospace Medicine; PCP Internal Medicine
DX: K52.9 Noninfective gastroenteritis and colitis, unspecified (principal); J44.9 Chronic obstructive pulmonary disease, unspecified; Z87.891 Personal history of nicotine dependence
CPT/HCPCS: 36415; 74177; 80053; 81001; 83690; 85025; 96361; 96372; 96374; 99284; J0500; J7030; Q9967

== ENCOUNTER 2023-01-07 12:22 | Outpatient (CLI) | payer MEDICARE, MEDICAID, SELFPAY ==
[2023-01-07 12:52] LABS: Basophils Absolute Auto 0.04 K/mm3 (0.00-0.10); Basophils Percent Auto 0.4 % (0.0-1.0); Eosinophils Percent Auto 2.2 % (1.0-6.0); Hematocrit 37.9 % (35.0-42.0); Hemoglobin 11.9 g/dL (11.7-13.8); Immature Granulocyte Absolute 0.02 K/mm3 (0.00-0.00); Immature Granulocyte Percent A 0.2 % (0.0-0.0); Immature Reticulocyte Fraction 12.7 % (2.0-16.52); Lymphocytes Absolute Auto 1.78 K/mm3 (1.10-4.50); Lymphocytes Percent Auto 19.7 % (18.0-42.0); Mean Corpuscular HGB Conc 31.4 g/dL (32.0-36.0); Mean Corpuscular Hemoglobin 26.5 pg (27.0-31.0); Mean Corpuscular Volume 84.4 fL (78.0-102.0); Mean Platelet Volume 10.9 fl (9.2-11.8); Monocytes Absolute Auto 0.85 K/mm3 (0.10-0.90); Monocytes Percent Auto 9.4 % (2.0-11.0); Neutrophils Absolute Auto 6.2 K/mm3 (1.7-7.2); Neutrophils Percent Auto 68.1 % (50.0-70.0); Platelet Count Result 313 K/mm3 (150-420); Red Blood Count 4.49 M/mm3 (4.20-5.40); Red Cell Distribution Width 14.8 % (11.6-14.4); Reticulocyte Hemoglobin Conten 31.5 pg (28.0-35.0); Reticulocyte Percent 0.96 % (0.50-1.50); Reticulocytes Absolute 0.04 M/mm3 (0.02-0.1)
[2023-01-07 13:36] LABS: Creatine Kinase 54 U/L (26-192); Ferritin 10 ng/mL (8-252); Iron 26 ug/dL (50-170); Percent Iron Saturation 4 % (12-57); Thyroid Stimulating Hormone 1.76 uIU/mL (0.36-3.74)
[2023-01-07 13:37] LABS: CRP < 0.5 mg/dL (0.0-0.9)
== END 2023-01-07 12:23 | disposition home or self-care (01) ==
LOC: CHSLAB 12:24
PROVIDERS: PCP Internal Medicine; Visit Provider Internal Medicine
DX: D64.9 Anemia, unspecified (principal); E03.9 Hypothyroidism, unspecified; M54.9 Dorsalgia, unspecified
CPT/HCPCS: 36415; 82550; 82728; 83540; 83550; 84443; 85025; 85046; 86140

== ENCOUNTER 2023-04-14 12:50 | Outpatient (CLI) | payer MEDICARE, SELFPAY ==
--- NOTE | ~2023-04-14 | MM_ITS ---
EXAMINATION: MM screening [facility] BI w sameer HISTORY: Screening mammogram TECHNIQUE: Craniocaudal and mediolateral oblique 3-D tomosynthesis images were obtained and synthetic 2-D images were generated. CAD analysis was submitted and interpreted. COMPARISON: 07/12/2019 BREAST PARENCHYMAL COMPOSITION: There are scattered areas of fibroglandular density. FINDINGS: Stable focal asymmetry is present in the upper outer quadrant of the right breast. No suspi cious mass, calcification, or architectural distortion are identified in either breast to suggest mal ignancy. There has been no suspicious interval change. IMPRESSION: 1. No mammographic evidence of malignancy. 2. Recommend routine screening mammography in one year. BI-RADS Category 2: Benign finding(s). Reviewed, dictated and finalized at location A.
== END 2023-04-14 12:51 | disposition home or self-care (01) ==
LOC: CHSIMG 12:51
PROVIDERS: PCP Internal Medicine; Visit Provider Internal Medicine
DX: Z12.31 Encounter for screening mammogram for malignant neoplasm of breast (principal)
CPT/HCPCS: 77063; 77067

== ENCOUNTER 2023-11-01 12:56 | Outpatient (CLI) | payer MEDICARE, MEDICAID, SELFPAY ==
--- NOTE | ~2023-11-01 | CT_ITS ---
CT Scan of the Chest without Contrast: Clinical Indication: Lung cancer screening, personal history of nicotine dependence Technique: Contiguous sections were acquired throughout the chest without intravenous contrast. Dose reduction technique was used on this scan by utilizing automated exposure control and iterative recon struction technique. The dose-length product (DLP) was 78.74 mGy-cm. COMPARISON: 01/23/2022 Findings: There is no evidence of any significant mediastinal, hilar or axillary lymphadenopathy. The mediastin al soft tissues appear normal. There is no evidence of pleural or pericardial effusion. There is linear scarring at the lingula and right middle lobe. No pulmonary nodule evident. Images through the upper abdomen reveal no abnormalities. Impression: Lung RADS 1: Negative. 12 month follow-up screening CT advised. Reviewed, dictated and finalized at [facility]. ONENT INSPECTOR Impression: Lung RADS 1: Negative. 12 month follow-up screening CT advised.
--- NOTE | ~2023-11-01 | XR_ITS ---
EXAM: XR shoulder LT min 2V DATE: 11/01/2023 14:18 HISTORY: stiff/sore/achy Lt shoulder X 3-4 months . COMPARISON: None available. FINDINGS: Normal mineralization. No fracture or dislocation. No lytic or blastic lesion. Moderate AC joint and mild humeral joint degenerative change. No erosion or periosteal change. Soft tissues with in normal limits. IMPRESSION: Polyarticular left shoulder osteoarthritic arthritis. Reviewed, dictated and finalized at location K. ICAL NURSE OCCUPATIONAL MEDICINE
--- NOTE | 2023-11-01 13:02 | ECHO_ITS ---
Patient Info Name: Maye Pitt Age: 68 years : 1955 Gender: Female Ht: 66 in Wt: 162 lbs BSA: 1.86 m2 HR: 75 bpm BP: 131 / 81 mmHg Heart Rhythm: Sinus Rhythm Technical Quality: Fair Exam Date: 11/01/2023 2:07 PM Exam Location: Echo Lab Patient Status: Outpatient Admit Date: 11/01/2023 Staff Ordering Physician: Sharif Chaves DO Snow Plow Operator: Gilbert Soria RDCS Attending Provider: Sharif Chaves DO Referring Physician: Anastacio WORTHY; Exam Type: CA echo doppler color flow Study Info Indications - dyspnea, unsp Complete two-dimensional, color flow and Doppler transthoracic echocardiogram is performed. Summary 1. Complete two-dimensional, color flow and Doppler transthoracic echocardiogram is performed. 2. Left ventricular chamber dimension is normal. 3. Left ventricular systolic function is normal, estimated at 60-65%. 4. The left ventricular diastolic function is grade I diastolic dysfunction. 5. E/e' 11 is mildly elevated. 6. There is trace mitral valve regurgitation. 7. There is trace tricuspid valve regurgitation. 8. No pulmonary hypertension, estimated pulmonary arterial systolic pressure is 26 mmHg. Left Ventricle E/e' 11 is mildly elevated. Left ventricular chamber dimension is normal. Left ventricular systolic function is normal, estimated at 60-65%. The left ventricular diastolic function is grade I diastolic dysfunction. Right Ventricle Right ventricular systolic function is normal and with normal TAPSE 1.8 cm. Right ventricular chamber dimension is normal. Left Atria Left atrial chamber dimension is normal. Right Atria Right atrial chamber dimension is normal. Aortic Valve The aortic valve is trileaflet. There is no aortic valve stenosis. There is no aortic valve regurgitation. Pulmonic Valve There is no pulmonic regurgitation. Mitral Valve There is no mitral valve stenosis. There is trace mitral valve regurgitation. Tricuspid Valve There is trace tricuspid valve regurgitation. No pulmonary hypertension, estimated pulmonary arterial systolic pressure is 26 mmHg. Pericardium/Pleural There is no pericardial effusion. Inferior Vena Cava Normal inferior vena cava with >50% collapse upon inspiration consistent with normal right atrial pressure, 5 mmHg. Aorta The aortic root size at the sinus of Valsalva is normal. Left Ventricular Outflow Tract Name Value Normal LVOT 2D LVOT Diameter 1.9 cm LVOT Doppler LVOT Peak Velocity 52 cm/s LVOT Peak Gradient 1 mmHg LVOT Mean Gradient 1 mmHg LVOT VTI 10 cm LVOT VTI/AV VTI Ratio 0.4 LVOT Stroke Volume 29 ml Pulmonic Valve Name Value Normal RVOT Doppler RVOT Peak Gradient 1 mmHg PV Doppler PV P
== END 2023-11-01 12:57 | disposition home or self-care (01) ==
PROVIDERS: PCP Internal Medicine; Visit Provider Internal Medicine Cardiovascular Disease
DX: Z12.2 Encounter for screening for malignant neoplasm of respiratory organs (principal); Z87.891 Personal history of nicotine dependence; D50.9 Iron deficiency anemia, unspecified; M19.012 Primary osteoarthritis, left shoulder; R06.00 Dyspnea, unspecified
CPT/HCPCS: 71271; 73030; 93306

== ENCOUNTER 2024-02-18 15:01 | Outpatient (CLI) | payer MEDICARE, MEDICAID, SELFPAY ==
--- NOTE | ~2024-02-18 | XR_ITS ---
XR ribs RT 2V w CXR 2V Ordering provider: George Torres MD History: . Fall x10 days, Rt. side rib/chest pain; worsening . Comparison: None. FINDINGS: BONES: No acute rib fracture. MEDIASTINUM: The cardiac silhouette is not enlarged. LUNGS: No infiltrates, effusions or pneumothorax. Prominent markings in the left lower lobe. OTHER: No free air under the diaphragm. Degenerative changes of the spine. IMPRESSION: 1. No right rib fracture. 2. No acute cardiopulmonary findings. Reviewed, dictated and finalized at location A.
[2024-02-18 16:29] LABS: Alanine Aminotransferase 17 U/L (14-59); Albumin Level 3.7 g/dL (3.4-5.0); Alkaline Phosphatase 55 U/L (46-116); Anion Gap 8 mmol/L (4-12); Aspartate Amino Transferase 21 U/L (15-37); Bilirubin,Total 0.3 mg/dL (0.00-1.00); Blood Urea Nitrogen 11 mg/dL (7-18); Calcium 9.3 mg/dL (8.5-10.1); Carbon Dioxide 30 mmol/L (21-32); Chloride 103 mmol/L (98-108); Cholesterol 202 mg/dL (0-200); Estimated Glomerular Filt Rate 59; Glucose 109 mg/dL (70-99); HDL Direct 70 mg/dL (40-60); LDL Cholesterol Calculated 113 mg/dL (<130); Osmolality Calculated 292 mOsm/kg (285-295); Sodium 141 mmol/L (136-145); Thyroid Stimulating Hormone 12.24 uIU/mL (0.36-3.74); Total Protein 7.3 g/dL (6.4-8.2); Triglycerides 96 mg/dL (0-150)
== END 2024-02-18 15:02 | disposition home or self-care (01) ==
PROVIDERS: PCP Internal Medicine; Visit Provider Internal Medicine
DX: S29.9XXA Unspecified injury of thorax, initial encounter (principal); E78.5 Hyperlipidemia, unspecified; E03.9 Hypothyroidism, unspecified
CPT/HCPCS: 36415; 71046; 71100; 80053; 80061; 84443

== ENCOUNTER 2024-06-08 14:57 | Outpatient (CLI) | payer MEDICARE, MEDICAID, SELFPAY ==
--- NOTE | ~2024-06-08 | XR_ITS ---
XR foot LT min 3V Ordering provider: George Torres MD History: . L BIG TOE INJURY . Comparison: None. FINDINGS: BONES: Comminuted Fracture at the base of the distal phalanx of the big toe. Dislocation is seen post eriorly. Calcaneus spur. JOINT SPACES: No tarsal coalition. SOFT TISSUES: Normal. IMPRESSION: Comminuted fracture at the base of the distal phalanx of the big toe. Posterior dislocation is seen i n the interphalangeal joint of the big toe. Reviewed, dictated and finalized at location A. IMPRESSION: Comminuted fracture at the base of the distal phalanx of the big toe. Posterior dislocation is seen in the interphalangeal joint of the big toe.
[2024-06-08 15:26] LABS: Hematocrit 41.6 % (35.0-42.0); Hemoglobin 13.3 g/dL (11.7-13.8); Mean Corpuscular Volume 90.8 fL (78.0-102.0); Mean Platelet Volume 10.2 fl (9.2-11.8); Platelet Count Result 353 K/mm3 (150-420); Red Blood Count 4.58 M/mm3 (4.20-5.40); Red Cell Distribution Width 13.3 % (11.6-14.4); White Blood Count 6.8 K/mm3 (4.8-10.8)
[2024-06-08 16:19] LABS: Alanine Aminotransferase 26 U/L (14-59); Albumin Level 3.6 g/dL (3.4-5.0); Alkaline Phosphatase 73 U/L (46-116); Anion Gap 8 mmol/L (4-12); Aspartate Amino Transferase 26 U/L (15-37); Bilirubin,Total 0.2 mg/dL (0.00-1.00); Blood Urea Nitrogen 13 mg/dL (7-18); Calcium 9.3 mg/dL (8.5-10.1); Carbon Dioxide 33 mmol/L (21-32); Chloride 98 mmol/L (98-108); Estimated Glomerular Filt Rate 57; Glucose 106 mg/dL (70-99); Osmolality Calculated 288 mOsm/kg (285-295); Potassium 4.4 mmol/L (3.5-5.1); Sodium 139 mmol/L (136-145); Thyroid Stimulating Hormone 2.16 uIU/mL (0.36-3.74); Total Protein 7.5 g/dL (6.4-8.2)
== END 2024-06-08 14:58 | disposition home or self-care (01) ==
PROVIDERS: PCP Internal Medicine; Visit Provider Internal Medicine
DX: S92.422A Displaced fracture of distal phalanx of left great toe, initial encounter for closed fracture (principal); K57.92 Diverticulitis of intestine, part unspecified, without perforation or abscess without bleeding; E03.9 Hypothyroidism, unspecified
CPT/HCPCS: 36415; 73630; 80053; 84443; 85027

== ENCOUNTER 2025-04-04 14:09 | Outpatient (CLI) | payer MEDICARE, MEDICAID, SELFPAY ==
--- NOTE | 2025-04-04 | CONSULT_PTH ---
PATIENT: Maye Pitt LOC: [facility]#:[id number] AGE/SX: 69/F ROOM: RE04/04/[address]: George Torres MD : 1955 BED: DIS: 04/04/2025 SPEC #: [id number] RECD: 04/04/25 15:25 STATUS: UZMA REAsim #: [id number] SYDNEE: 04/04/25 00:[address]: George Torres DEPT: [facility] Consult RECD BY: Jeimy Sanchez MLT, ([facility]) Tissues: A - Peripheral Smear Procedures: Hematology Consult
--- OUTSIDE RECORDS SUMMARY | 2025-04-04 14:20 | XMS_ITS | Clinical Summary ---
Author Organization [facility] Address [address] [place] [address] Care Team Providers Care Psychotherapist Name Role Phone George Torres MD Primary Care Provider [phone] Source Comments [facility],non-[facility] Affiliates and Associated Physician Practices is amultiple site organization consisting of ambulatory clinics and hospital sitesin [place], [place], [place] and [place]. This disclosure is being madepursuant to the Care Everywhere program and may not contain all information available regarding this patient. Last updated 18.[facility] [employer] Social History Tobacco Use Types Packs/Day Years Used Date Smoking Tobacco: Never Assessed Comments Unknown Sex and Gender Information Value Date Recorded Sex Assigned at Not on file Legal Sex Female 5:50 AM AIR BRAKES INSPECTOR Gender Identity Not on file Sexual Orientation Not on file Last Filed Vital Signs Vital Sign Reading Time Taken Comments Blood Pressure 140/84 12/02/2015 11:01 AM CDT Pulse 87 12/02/2015 11:01 AM CDT Temperature 36.7 C (98.1 F) 12/02/2015 11:01 AM CDT Respiratory Rate 16 12/02/2015 11:01 AM CDT Oxygen Saturation 98% 10/21/2015 2:59 PM AIR BRAKES INSPECTOR Inhaled Oxygen Concentration - - Weight 77.3 kg (170 lb 6.4 oz) 12/02/2015 11:01 AM CDT Height 167.6 cm (5' 6) 12/02/2015 11:01 AM CDT Body Mass Index 27.5 12/02/2015 11:01 AM CDT Plan of Treatment Health Maintenance Due Date Last Done Comments BONE DENSITY TESTING 1955 COLOGUARD (AGES 45-75) - COLON CA SCREENING 1955 COLON MONITORING 1955 COLONOSCOPY - COLON CA SCREENING 1955 CT COLONOGRAPHY - COLON CA SCREENING 1955 Colorectal Cancer Screening 1955 FIT - COLON CA SCREENING 1955 FLEX SIG - COLON CA SCREENING 1955 LIPID TESTING 1955 MAMMOGRAM 1955 DTAP/TDAP/TD VACCINES (1 - Tdap) 1975 PNEUMOCOCCAL VACCINE 50+ (1 of 1 - PCV) 2006 ZOSTER VACCINE (1 of 2) 2006 COVID-19 VACCINE (1 - season) 2024 DEPRESSION SCREENING 09/06/2024 INFLUENZA VACCINE (#1) 2025 Respiratory Syncytial Virus (RSV) Vaccine Pt: or over 60 yrs (1 - 1-dose 75+ series) 2031 HEPATITIS C SCREENING Completed 12/02/2015 , 09/24/2015, 09/24/2015, Additional history exists HEPATITIS B VACCINE Aged Out No longe r eligible based on patient's age to complete this topic HIB VACCINE Aged Out No longer eligi ble based on patient's age to complete this topic HPV VACCINE Aged Out No longer eligi ble based on patient's age to complete this topic MENINGOCOCCAL (Group B) VACCINE SHARED DECISION-MAKING Aged Out No longer eligible based on patient's age to complete this topic MENINGOCOCCAL GROUPS A/C/Y/W VACCINE Aged Out No longer eligible based on patient's age to complete this topic Procedures Procedure Name Priority Date/Time Associated Diagnosis Comments HEPATITIS C RNA QUANTITATIVE Routine 09/24/2015 2:35 PM AIR BRAKES INSPECTOR from Last 3 Months or Most Recently Relevant to Health Maintenance Results * HEPATITIS C RNA QUANTITATIVE PCR (09/24/2015 2:35 PM AIR BRAKES INSPECTOR) Pathologist [facility] Hepatitis C Virus RNA PCR Specimen: 1 ml Serum Reference: [id number] Test: Hepatitis C RT-PCR (Quantitative) RESULT Not Detected Reference Range Not Detected INTERPRETATION The quantitative Hepatitis C viral RNA RT-PCR determination was performed on a serum sample and is reported in IU/ml. Hepatitis C viral RNA was not detected. COMMENT The Hepatitis C viral (HCV) RNA analysis utilized a serum sample, real-time reverse director hydrogen storage engineering PCR, and is reported as Not Detected, Detected (<12 IU/ml), Quantity (IU/ml) or >100,000,000 IU/ml. The analytical sensitivity of the assay is 5 IU/ml (90% of samples with this HCV RNA level were detected). Values less than 5 IU/ml are reported as Not Detected. The linear range is from 12 IU/ml to 100,000,000 IU/ml. Values greater than or equal to 5 IU/ml and <12 IU/ml are reported as Detected (<12 IU/ml). Values greater than 100,000,000 IU/ml are reported as >100,000,000 IU/ml. The detection/quantit ation of HCV RNA in serum is based on the isolation of HCV RNA with reverse director hydrogen storage engineering of genomic HCV RNA followed by real-time PCR in the presence of an unrelated RNA internal control. The internal control ensures that RNA is isolated, and that no general significant inhibitors of the RT-PCR process are present. This analysis was performed using an [place] FDA approved test methodology ([employer] RealTime HCV). Test performed at [place] [id number] This case has been personally reviewed and interpreted by the attending (teaching) pathologist. Final Diagnosis performed by Malcolm Muñiz PHD. Electronically signed 09/27/2015 [facility] Blood specimen (specimen) BLOOD SPECIMEN / Unknown 09/24/2015 2:35 PM AIR BRAKES INSPECTOR 09/24/2015 2:45 PM AIR BRAKES INSPECTOR Kane Hampton MD LAB - CHEMISTRY ORDERABLES [place] padilla Result [facility]) from Last 3 Months or Most Recently Relevant to Health Maintenance Insurance MEDICAID - OUT OF STATE [facility] MEDICARE ADV [facility] MEDICARE ADV Care Teams Psychotherapist Relationship Specialty Start Date End Date George Torres MD [address] [place] [address] PCP - General 05/28/22
--- OUTSIDE RECORDS SUMMARY | 2025-04-04 14:20 | XMS_ITS | Clinical Summary ---
Author Organization [facility] Address [address] [place] [address] Care Team Providers Care Home Care Aide Name Role Phone Unavailable Primary Care Provider Unavailabl e Social History Tobacco Use Types Packs/Day Years Used Date Smoking Tobacco: Never Assessed Comments Unknown Sex and Gender Information Value Date Recorded Sex Assigned at Not on file Legal Sex Female 7:54 PM CDT Gender Identity Not on file Sexual Orientation Not on file Plan of Treatment Health Maintenance Due Date Last Done Comments Colorectal Cancer Screening Colonoscopy (10 Years) 1955 Hepatitis C 1974 DTaP, Tdap and Td Vaccines ( 1 - Tdap) 1975 Mammogram Screening 1996 Pneumococcal Vaccine: 50+ Ye ars (1 of 1 - PCV) 2006 Zoster Vaccines (1 of 2) 2006 Dexa Scan (General) 2021 COVID-19 Vaccine ( - 2023-2 5 season) 2024 RSV Immunization or 60+ Years (1 - 1-dose 75+ series) 2031 Meningococcal B Vaccine Aged Out No l onger eligible based on patient's age to complete this topic Meningococcal Vaccine Aged Out No roselia baljinder eligible based on patient's age to complete this topic RSV Immunizations Under 20 Months Aged Out No longer eligible based on patient's age to complete this topic
[2025-04-04 14:32] LABS: Immature Reticulocyte Fraction 22.8 % (2.0-16.52); Reticulocyte Hemoglobin Conten 25.8 pg (28.0-35.0); Reticulocytes Absolute 0.08 M/mm3 (0.02-0.10)
[2025-04-04 14:44] LABS: Iron 50 ug/dL (37-170)
[2025-04-04 14:53] LABS: Percent Iron Saturation 10 % (20-50)
[2025-04-04 15:20] LABS: Ferritin 13.30 ng/mL (11.1-264); Hematocrit 38.5 % (35.0-42.0); Hemoglobin 11.2 g/dL (11.7-13.8); Immature Granulocyte Percent A 0.2 % (0.0-0.0); Lymphocytes Absolute Auto 1.82 K/mm3 (1.10-4.50); Mean Corpuscular HGB Conc 29.1 g/dL (32-36); Mean Corpuscular Hemoglobin 24.1 pg (27.0-31.0); Mean Corpuscular Volume 83.0 fL (78.0-102.0); Nucleated Red Blood Cells Absolute Auto 0.00 K/mm3 (0.00-0.00); Nucleated Red Blood Cells Perc 0.0 % (0-0.0); Platelet Count Result 399 K/mm3 (150-420); Red Blood Count 4.64 M/mm3 (4.20-5.40); White Blood Count 4.9 K/mm3 (4.8-10.8)
[2025-04-05 14:08] LABS: Folate, Hemolysate 398.0 ng/mL (Not Estab.); Folate, RBC 1026 ng/mL (>498); Hematocrit 38.8 % (34.0-46.6)
== END 2025-04-04 14:10 | disposition home or self-care (01) ==
LOC: CHSLAB 14:12
PROVIDERS: PCP Internal Medicine; Visit Provider Internal Medicine
DX: D64.9 Anemia, unspecified (principal)
CPT/HCPCS: 36415; 82728; 82747; 83540; 83550; 83921; 85025; 85046